=== PATIENT | male | born 1990 | race Caucasian/White ===

== ENCOUNTER 2018-12-07 13:44 | Emergency (ER) | payer SELFPAY ==
--- NOTE | 2018-12-07 14:11 | EDPHYS ---
Physician Documentation [facility] Name: Daniel Whitten Age: 28 yrs Sex: Male : 1990 Arrival Date: 12/07/2018 Time: 13:47 Bed 5 Private MD: None, None ED Physician Luis Rivers HPI: 12/07 14:06 This 28 yrs old Male presents to ER via Ambulatory with complaints of Nose rn Bleed. 14:06 The patient presents with a nose bleed, and the bleeding resolved prior to arrival. rn Onset: The symptoms/episode began/occurred 1 week(s) ago. Modifying factors: The symptoms are alleviated by pressure, the symptoms are aggravated by blowing nose. Severity of symptoms: At their worst the symptoms were mild in the emergency department the symptoms have resolved. The patient has experienced similar episodes in the past. Reports cold recently, has been blowing his nose a lot and has hx of frequent nose bleeds, stops with pressure, no dizziness, no blood thinners, and no trauma.. Historical: - Allergies: 13:58 ORANGES; ph - Home Meds: 13:58 None [Active]; ph - PMHx: 13:58 None; ph - PSHx: 13:58 None; ph - Immunization history:: Adult Immunizations unknown. - Social history:: Smoking status: Patient uses tobacco products, denies chronic smoking, but will smoke occasionally. - Ebola Screening: : No symptoms or risks identified at this time. - Family history:: not pertinent. - Hospitalizations: : No recent hospitalization is reported. ROS: 14:06 Constitutional: Negative for fever, chills, and weight loss, ENT: + nose bleed Skin: rn Negative for injury, rash, and discoloration, Neuro: Negative for headache, weakness, numbness, tingling, and seizure. Exam: 14:06 Constitutional: This is a well developed, well nourished patient who is awake, alert, rn and in no acute distress. Head/Face: Normocephalic, atraumatic. ENT: dry nasal blood right nare without active bleeding, appears likely proximal bleed that has resolved. Vital Signs: 13:59 BP 147 / 57; Pulse 92; Resp 18; Temp 97.9; Pulse Ox 100% on R/A; Weight 99.79 kg; ph Height 6 ft. 2 in. (187.96 cm); 13:59 Body Mass Index 28.25 (99.79 kg, 187.96 cm) ph MDM: 13:55 Patient medically screened. rn 14:06 Differential diagnosis: spontaneous epistaxis. Data reviewed: vital signs, nurses rn notes, and as a result, I will discharge patient. Counseling: I had a detailed discussion with the patient and/or guardian regarding: the historical points, exam findings, and any diagnostic results supporting the discharge/admit diagnosis, the need for outpatient follow up, to return to the emergency department if symptoms worsen or persist or if there are any questions or concerns that arise at home. Special discussion: Based on the history and exam findings, there is no indication for further emergent testing or inpatient evaluation. I discussed with the patient/guardian the need to see the ENT specialist for further evaluation of the symptoms. ED course: Bleeding resolved, advised nasal saline/nasacort, and ENT f/u. Given nasal clamps, directed to hold pressure and lean forward. . Administered Medications: No medications were administered Disposition: 12/07/18 14:11 Discharged to Home. Impression: Epistaxis. - Condition is Stable. - Discharge Instructions: Nosebleed, Adult. - Medication Reconciliation Form, Thank You Letter, Antibiotic Education, Prescription Opioid Use form. - Follow up: Private Physician; When: As needed; Reason: Recheck today's complaints, Re-evaluation by your physician. - Problem is new. - Symptoms have improved. Signatures: Jessica Radford RN RN Luis Rivers MD MD rn Hall, Patricia, RN RN Corrections: (The following items were deleted from the chart) 14:15 14:11 12/07/2018 14:11 Discharged to Home. Impression: Epistaxis. Condition is Stable. sv Forms are Medication Reconciliation Form, Thank You Letter, Antibiotic Education, Prescription Opioid Use. Follow up: Private Physician; When: As needed; Reason: Recheck today's complaints, Re-evaluation by your physician. Problem is new. Symptoms have improved. rn
--- NOTE | 2018-12-07 14:11 | ER ---
Nurse's Notes [facility] Name: Daniel Whitten Age: 28 yrs Sex: Male : 1990 Arrival Date: 12/07/2018 Time: 13:47 Bed 5 Private MD: None, None Diagnosis: Epistaxis Presentation: 12/07 13:56 Presenting complaint: Patient states: Frequent nose bleeds x 2 -3 days, reports recent ph cold-like symptoms, c/o intermittent bleeding from R nare lasting approx 5-6 min, no bleeding noted at this time. Transition of care: patient was not received from another setting of care. Onset of symptoms was December 07, 2018. Risk Assessment: Do you want to hurt yourself or someone else? Patient reports no desire to harm self or others. Initial Sepsis Screen: Does the patient meet any 2 criteria? No. Patient's initial sepsis screen is negative. Does the patient have a suspected source of infection? No. Patient's initial sepsis screen is negative. Care prior to arrival: None. 13:56 Method Of Arrival: Ambulatory ph 13:56 Acuity: LOUISA 4 ph Historical: - Allergies: 13:58 ORANGES; ph - Home Meds: 13:58 None [Active]; ph - PMHx: 13:58 None; ph - PSHx: 13:58 None; ph - Immunization history:: Adult Immunizations unknown. - Social history:: Smoking status: Patient uses tobacco products, denies chronic smoking, but will smoke occasionally. - Ebola Screening: : No symptoms or risks identified at this time. - Family history:: not pertinent. - Hospitalizations: : No recent hospitalization is reported. Screenin:53 Abuse screen: Denies threats or abuse. Denies injuries from another. Nutritional sv screening: No deficits noted. Tuberculosis screening: No symptoms or risk factors identified. Fall Risk None identified. Assessment: 14:00 General: Appears in no apparent distress. comfortable, Behavior is calm, cooperative, sv appropriate for age. Pain: Denies pain. Neuro: Level of Consciousness is awake, alert, obeys commands, Oriented to person, place, time, situation, Gait is steady. Respiratory: Respiratory effort is even, unlabored, Respiratory pattern is regular, symmetrical. Derm: Skin is pink, warm \T\ dry. Vital Signs: 13:59 BP 147 / 57; Pulse 92; Resp 18; Temp 97.9; Pulse Ox 100% on R/A; Weight 99.79 kg; ph Height 6 ft. 2 in. (187.96 cm); 13:59 Body Mass Index 28.25 (99.79 kg, 187.96 cm) ph ED Course: 13:47 Patient arrived in ED. mr 13:47 None, None is Private Physician. mr 13:52 Jessica Radford, RN is Primary Nurse. sv 13:53 Patient has correct armband on for positive identification. Bed in low position. Door sv closed. Head of bed elevated. 13:55 Luis Rivers MD is Attending Physician. rn 13:58 Triage completed. ph 14:00 Arm band placed on. sv 14:14 No provider procedures requiring assistance completed. Patient did not have IV access sv during this emergency room visit. Administered Medications: No medications were administered Outcome: 14:11 Discharge ordered by . rn 14:14 Discharged to home ambulatory. sv 14:14 Condition: stable 14:14 Discharge instructions given to patient, Instructed on discharge instructions, follow up and referral plans. Demonstrated understanding of instructions, follow-up care. 14:15 Patient left the ED. sv Signatures: Jessica Radford, RN [place] MontemayorSherry mr Luis Rivers MD MD rn MaconVickie RN RN
== END 2018-12-07 14:15 | disposition home or self-care (01) ==
LOC: ER 13:44
DX: R04.0 Epistaxis (principal); Z72.0 Tobacco use; Z91.018 Allergy to other foods
CPT/HCPCS: 99282